=== PATIENT | male | born 1955 | race Caucasian/White ===

== ENCOUNTER → 2018-05-27 | Outpatient (CLI) | payer BC | END | disposition home or self-care (01) | LOC: KCIC MRI 13:32 | DX: M47.896 Other spondylosis, lumbar region (principal); M47.897 Other spondylosis, lumbosacral region; M48.061 Spinal stenosis, lumbar region without neurogenic claudication | CPT/HCPCS: 72148 ==

== ENCOUNTER → 2019-03-18 | Day surgery (SDC) | payer BC ==
[~2019-03-18] MED LIST: IV RINGERS,LACTATED 1000ML 1,000 ML IV SCH; LIDOCAINE 2% PF 5 ML VIAL. ONE; PROPOFOL 40 ML IV ONE
[2019-03-18 17:20] VITALS: BP 141/67
--- NOTE | 2019-03-19 02:54 | CONS ---
DATE OF CONSULTATION: 03/18/2019 REASON FOR CONSULTATION: Colorectal screening. REFERRING PHYSICIAN: Dr. Asad Malloy. HISTORY OF PRESENT ILLNESS: This is a 64-year-old male with past medical history significant for vasectomy, is seen for interval colonoscopy. Last exam was 10 years ago, which was unrevealing. At this time, there has been no change in bowel habits. He does have occasional diarrhea, no melena or hematochezia is noted. Weight and appetite are stable. No family history of colon polyps or colon cancer is elicited. He is otherwise without additional complaints. ALLERGIES: None. MEDICATIONS: None. FAMILY AND SOCIAL HISTORY: He is a social drinker. He does not smoke. FAMILY HISTORY: Noncontributory. PAST SURGICAL HISTORY: Status post vasectomy. REVIEW OF SYSTEMS: Per records. PHYSICAL EXAMINATION: GENERAL: Reveals a well-nourished, well-developed male, who is alert, in no acute distress. VITAL SIGNS: Temperature 97.8, pulse 66, respirations 18. HEENT: Normocephalic, atraumatic head. Pupils and extraocular muscles are not tested. Sclerae anicteric. NECK: Supple. LUNGS: Clear. CARDIOVASCULAR: Reveals an S1, S2 without S3, S4 or appreciable murmur. ABDOMEN: Soft abdomen, normal bowel sounds without appreciable hepatosplenomegaly. EXTREMITIES: Reveals no cyanosis, clubbing, edema. IMPRESSION AND PLAN: Colorectal screening is warranted at this time. Risks and benefits of procedure including risk of hemorrhage and perforation have been discussed with the patient, who is willing to proceed. BETHANY ARIAS MD DR: JEANETTE/nts JOB#: [id number] / [id number] ASAD Reed MD
== END | disposition home or self-care (01) ==
LOC: SURG 15:18
PROVIDERS: ATTEND Internal Medicine Gastroenterology
DX: Z12.11 Encounter for screening for malignant neoplasm of colon (principal); K57.30 Diverticulosis of large intestine without perforation or abscess without bleeding; K64.0 First degree hemorrhoids; Z98.52 Vasectomy status; Z98.890 Other specified postprocedural states; Z72.89 Other problems related to lifestyle
CPT/HCPCS: 45378; J2001; J2704